=== PATIENT | female | born 1985 | race Hispanic/Latino ===

== ENCOUNTER 2022-08-29 12:56 | Emergency (ER) | payer SELFPAY ==
[2022-08-29] VITALS (14 sets, daily range): BP systolic 121–131; BP diastolic 78–79; PULSE 68–85; RESP 13–28; TEMP 36.4; O2SAT 98–100
--- NOTE | ~2022-08-29 | US_ITS ---
EXAMINATION: US pelvic complete w TV DATE: 08/29/2022 14:33 INDICATION: Vaginal bleeding and TECHNIQUE: Multiple transabdominal and endovaginal sonographic images of the pelvis were obtained. COMPARISON: None. FINDINGS: The uterus measures eight point 4 x 4 by 4.3 cm. The endometrial complex measures 17 mm. Th e right ovary measures 1.6 x 1.9 x 1.2 cm. The left ovary measures 1.2 x 1.9 x 1.4 cm. There is danuta l vascular flow in the ovaries. There is no free fluid in the pelvis. IMPRESSION: 1. of unknown location. Although no intrauterine gestational sac is seen, this may be due t o early gestation. If the patient is clinically stable, recommend followup with serial beta-hCG and u ltrasound. Reviewed, dictated and finalized at location F. IMPRESSION: 1. of unknown location. Although no intrauterine gestational sac is s een, this may be due to early gestation. If the patient is clinically stable, r ecommend followup with serial beta-hCG and ultrasound.
--- NOTE | 2022-08-29 13:42 | PC.NURSE ---
Attempted IV placement x3 and blood draw at this time, unsuccessful other than lav tube sent to lab at this time. unsuccessful attempt at lab draw by tech at this time.
[2022-08-29 13:47] LABS: Basophils Percent Auto 0.6 % (0.2-1.2); Eosinophils Absolute Auto 0.2 K/mm3 (0-0.3); Eosinophils Percent Auto 2.3 % (0-4.4); Hematocrit 40.9 % (37.0-47.0); Hemoglobin 13.1 g/dL (12.0-15.0); Immature Platelet Fraction Pct 4.3 % (0.9-11.2); Lymphocytes Absolute Auto 1.55 K/mm3 (0.9-3.2); Lymphocytes Percent Auto 23.9 % (18.3-44.2); Mean Corpuscular Volume 93.8 fl (80-100); Mean Platelet Volume 10.8 fl (7.4-10.4); Monocytes Absolute Auto 0.5 K/mm3 (0.1-0.6); Monocytes Percent Auto 7.9 % (2.6-8.5); Neutrophils Absolute Auto 4.2 K/mm3 (1.3-6.7); Neutrophils Percent Auto 65.3 % (45.5-73.1); Platelet Count Result 309 k/mm3 (150-375); Red Blood Count 4.36 M/mm3 (4.2-5.4); Red Cell Distribution Width 13.6 % (11.5-14.5); White Blood Count 6.5 K/mm3 (4.5-10.0)
[2022-08-29 15:50] LABS: Beta HCG Quantitative 141.42 mIU/ML
--- NOTE | 2022-08-29 16:19 | PC.NURSE ---
This nurse provider hand singer at this time with Dr. Trevor MD.
--- NOTE | 2022-08-29 16:25 | ED.GENADULT ---
HPI - General Adult General Chief complaint: Vaginal Bleeding Stated complaint: vaginal bleeding; Time Seen by Provider: 08/29/22 13:08 Source: RN notes reviewed History of Present Illness HPI narrative: Patient presents emergency department from home for vaginal bleeding. Patient states that she has been having vaginal bleeding that began last night states that has been dark red in nature and has been spotting but became heavier this morning. Patient states she is with last menstrual cycle July 18. States she is followed by an [facility] not at this facility. The patient is . Denies have any abdominal pain. She denies any fevers or chills or any other symptoms states he has had no evaluation for this and has not had an ultrasound Related Data Allergies Allergy/AdvReac Type Severity Reaction Status Date / Time No Known Allergies Allergy Verified 08/29/22 12:58 Review of Systems Review of Systems: Gen.: Denies fevers or chills ENT: Denies congestion Respiratory: Denies shortness of breath or cough CV: Denies chest pain or palpitations GI: Denies abdominal pain nausea, emesis or diarrhea see HPI Musculoskeletal: Denies back pain or muscle pain Neuro: Denies numbness, tingling, weakness or focal weakness Skin: Denies rash Except as documented, all other systems reviewed and negative [facility] Past Medical History Medical History (Updated 08/29/22 @ 16:30 by Jose Murray DO) Patient denies significant medical history Social History Social History (Updated 08/29/22 @ 16:27 by Jose Murray DO) Smoking status: Never smoker Exam Narrative: APPEARANCE: No acute distress, nontoxic, resting in bed EYES: EOMI HEENT: Normocephalic, atraumatic, OMM RESPIRATORY: No respiratory distress Clear to auscultation bilaterally with no rhonchi wheezing or rales. CARDIOVASCULAR: Regular rate and rhythm without murmurs rubs or gallops. ABDOMINAL: Soft, nontender, nondistended, no rebound or guarding : Normal external exam, small amount of dark red blood with clots in vaginal canal cervix is closed MUSCULOSKELETAl: Moves all extremities. No clubbing, cyanosis or edema. NEURO: Awake and alert. Following commands, speech normal, no focal deficits SKIN:: Warm, dry. No rashes lesions or abrasions PSYCHIATRIC: Normal affect/mood, Course Course Emergency Course: Stratus was used throughout stay as well as daughter for translation Discussed with patient results of workup and diagnosis. Discussed need for follow-up with primary care, proper use of medication, and reasons to return to the emergency department. Patient understands and agrees to current treatment plan Vital Signs Vital signs: Vital Signs Temperature 97.5 F L 08/29/22 13:02 Pulse Rate 84 08/29/22 13:02 Respiratory Rate 18 08/29/22 13:02 Blood Pressure 131/79 08/29/22 13:02 Pulse Oximetry 99 08/29/22 13:02 Oxygen Delivery Room Air 08/29/22 13:02 Temperature 97.5 F L 08/29/22 13:02 Pulse Rate 84 08/29/22 13:02 Respiratory Rate 18 08/29/22 13:02 Blood Pressure 131/79 08/29/22 13:02 Pulse Oximetry 99 08/29/22 13:02 Oxygen Delivery Room Air 08/29/22 13:02 Medical Decision Making Vital Signs Vital Signs: Vital Signs Temperature 97.5 F L 08/29/22 13:02 Pulse Rate 84 08/29/22 13:02 Respiratory Rate 18 08/29/22 13:02 Blood Pressure 131/79 08/29/22 13:02 Pulse Oximetry 99 08/29/22 13:02 Oxygen Delivery Room Air 08/29/22 13:02 Temperature 97.5 F L 08/29/22 13:02 Pulse Rate 84 08/29/22 13:02 Respiratory Rate 18 08/29/22 13:02 Blood Pressure 131/79 08/29/22 13:02 Pulse Oximetry 99 08/29/22 13:02 Oxygen Delivery Room Air 08/29/22 13:02 Lab Data 08/29/22 13:33 Labs: Lab Results 08/29/22 08/29/22 08/29/22 Range/Units 13:33 15:12 15:12 WBC 6.5 (4.5-10.0) K/mm3 RBC 4.36 (4.2-5.4) M/mm3 Hgb 13.1 (12.0-15
== END 2022-08-29 16:46 | disposition home or self-care (01) ==
PROVIDERS: Emergency Provider Emergency Medicine
DX: O20.0 Threatened abortion (principal); Z3A.00 Weeks of gestation of pregnancy not specified
CPT/HCPCS: 36415; 76830; 76856; 84702; 85025; 85055; 85461; 86850; 86900; 86901; 99284

== ENCOUNTER 2023-03-25 08:12 | Emergency (ER) | payer MEDICAID, SELFPAY ==
[2023-03-25 08:43] VITALS: BP 121/73; PULSE 87; RESP 18; TEMP 36.6; O2SAT 98
[2023-03-25 09:32] LABS: Influenza A QL RT-PCR Negative (Negative); Influenza B QL RT-PCR Negative (Negative); RSV RNA, RT-PCR Negative (Negative); SARS-CoV-2 RNA PCR Negative (Negative)
--- NOTE | 2023-03-25 10:14 | ED.URI ---
HPI - URI/Sore Throat General Chief Complaint: Upper Respiratory Infection Stated Complaint: has cold, has cough Time Seen by Provider: 03/25/23 08:42 History of Present Illness HPI Narrative: Patient presenting with URI symptoms for the last 3 days, she is 5 months , has no abdominal pain or vaginal bleeding, but does have all over body aches. Has already been seen by her doctor and started on multiple medications including migraine medications, Flonase, antibiotics. Related Data Allergies Allergy/AdvReac Type Severity Reaction Status Date / Time No Known Allergies Allergy Verified 08/29/22 12:58 Review of Systems Review of Systems: CONST: No fever. HEENT: Congestion, sore throat C/V: No chest pain RESP: cough GI: Nausea without abdominal pain : No dysuria or vaginal bleeding. M/S: Body aches SKIN: No rash. NEURO: [No focal numbness or weakness] PSYCH: [No depression] [facility] Past Medical History Medical History (Updated 03/25/23 @ 09:40 by Elizabet James MD) Patient denies significant medical history Social History Social History (Updated 08/29/22 @ 16:27 by Jose Murray DO) Smoking status: Never smoker Exam Narrative: EXAMINATION OF ORGAN SYSTEMS/BODY AREAS: Constitutional: Vital signs per nursing GENERAL:[No acute distress, non-toxic appearing.] HEAD: Normal with no signs of head trauma. EYES: EOMI, conjunctiva normal ENT: Congestion, airway intact LUNGS: Nonlabored breathing. Clear to auscultation bilaterally HEART: [Regular rate and rhythm] ABD: [Soft], [nontender to palpation], gravid EXT: Normal range of motion SKIN: [No rashes or lesions.] NEURO: [Alert and oriented x 3. No gross focal sensory or strength deficits.] PSYCH: Normal affect Course Vital Signs Vital signs: Vital Signs Temperature 98 F 03/25/23 08:43 Pulse Rate 87 03/25/23 08:43 Respiratory Rate 18 03/25/23 08:43 Blood Pressure 121/73 03/25/23 08:43 Pulse Oximetry 98 03/25/23 08:43 Oxygen Delivery Room Air 03/25/23 08:43 Temperature 98 F 03/25/23 08:43 Pulse Rate 87 03/25/23 08:43 Respiratory Rate 18 03/25/23 08:43 Blood Pressure 121/73 10/25/23 08:43 Pulse Oximetry 98 03/25/23 08:43 Oxygen Delivery Room Air 03/25/23 08:43 MDM - URI/Sore Throat MDM Narrative Medical decision making narrative: ED COURSE AND MEDICAL DECISION MAKING: This 37F year old patient presents with symptoms most suggestive of viral upper respiratory tract infection. Lungs are clear bilaterally without any respiratory distress or accessory muscle use. Respiratory swab is negative here. She is already on multiple medications from her PCP and I do not have anything further to offer, she also already has nausea medications. I have discussed findings with her and she is discharged home in stable condition with expectant management. Return precautions were provided and I have asked her to f/u with her PCP/OBGYN in 1-2 days. Pt and daughter agreeable to this and she is well appearing at time of discharge. Lab Data Labs: Lab Results 03/25/23 Range/Units 08:47 Influenza A (RT-PCR) Negative (Negative) Influenza B (RT-PCR) Negative (Negative) RSV (RT-PCR) Negative (Negative) SARS-CoV-2 RNA (RT-PCR) Negative (Negative) Discharge Plan Discharge Clinical Impression: Upper respiratory infection Patient Disposition: Home, Self-Care Condition: Stable Instructions: Antibiotic Form, Viral Syndrome (ED), Cold Symptoms (ED) Additional Instructions: Please follow up with your doctor in 2 days; come back if you can't breathe or keep anything down or if you feel worse. Patient Language: Uruguayan Follow-up/Referrals: PHYSICIAN NOT ON STAFF,NONSTAFF [Primary Care Provider] -
== END 2023-03-25 10:15 | disposition home or self-care (01) ==
PROVIDERS: Emergency Provider Emergency Medicine
DX: O99.512 Diseases of the respiratory system complicating pregnancy, second trimester (principal); J06.9 Acute upper respiratory infection, unspecified; Z20.822 Contact with and (suspected) exposure to COVID-19; Z3A.00 Weeks of gestation of pregnancy not specified
CPT/HCPCS: 87637; 99283

== ENCOUNTER 2023-06-10 12:32 | Outpatient (CLI) | payer OTHER, SELFPAY ==
--- NOTE | 2023-06-12 16:24 | WPDHOLTEREM ---
Holter/Event Monitor Holter/Event Monitor Date of procedure: 06/10/23 Holter/Event Procedure: 48 Hr Holter Monitor Indications: Palpitations Conclusion: 1. 48 hour holter monitor on 06/10/23. 2. Underlying rhythm is sinus rhythm. HR range 65-138 bpm; average HR 85 bpm. 3. There are 5 premature supraventricular complexes. No supraventricular tachycardia. 4. There are 21 premature ventricular complexes and 3 ventricular bigeminy. No ventricular tachycardia. 5. No sinoatrial or atrioventricular blocks. No significant pauses greater than 2 seconds. 6. Patient reports 1 episode of symptom of faster heart rate which demonstrate sinus rhythm at 85 bpm with a premature ventricular complex.
== END 2023-06-10 12:33 | disposition home or self-care (01) ==
LOC: ANHCARD 12:33
PROVIDERS: Visit Provider Obstetrics & Gynecology
DX: R00.2 Palpitations (principal)
CPT/HCPCS: 93225; 93226

== ENCOUNTER 2023-07-25 08:09 | Inpatient (IN) | payer OTHER, SELFPAY ==
[2023-07-25] VITALS (47 sets, daily range): BP systolic 73–138; BP diastolic 18–119; PULSE 73–140; RESP 16–18; TEMP 36.5–37.2; O2SAT 98; BMI 39.4
[2023-07-25 08:41] LABS: Basophils Percent Auto 0.4 % (0.2-1.2); Eosinophils Absolute Auto 0.1 K/mm3 (0-0.3); Eosinophils Percent Auto 0.8 % (0-4.4); Hematocrit 38.5 % (37.0-47.0); Hemoglobin 12.2 g/dL (12.0-15.0); Immature Granulocyte Absolute 0.03 K/mm3 (0.00-0.031); Immature Granulocyte Percent A 0.4 % (0-0.5); Lymphocytes Absolute Auto 1.33 K/mm3 (0.9-3.2); Lymphocytes Percent Auto 16.8 % (18.3-44.2); Mean Corpuscular HGB Conc 31.7 g/dl (32-36); Mean Corpuscular Hemoglobin 27.7 pg (26-34); Mean Corpuscular Volume 87.5 fl (80-100); Mean Platelet Volume 10.9 fl (7.4-10.4); Monocytes Absolute Auto 0.6 K/mm3 (0.1-0.6); Monocytes Percent Auto 7.5 % (2.6-8.5); Neutrophils Absolute Auto 5.9 K/mm3 (1.3-6.7); Neutrophils Percent Auto 74.1 % (45.5-73.1); Platelet Count Result 290 k/mm3 (150-375); Red Cell Distribution Width 14.9 % (11.5-14.5); White Blood Count 7.9 K/mm3 (4.5-10.0)
[2023-07-25] MEDS: LACTATED RINGERS 1,000 ML 125 ML IV CONT (08:43)
[2023-07-25] MEDS: AMPICILLIN 2 GM/NS 100 ML 2 GM/100 ML BAG IVPB (08:45)
[2023-07-25 08:58] LABS: Glucose Point of Care 91 mg/dl (65-105)
[2023-07-25] MEDS: fentaNYL CITRATE INJ (*CRX) 100 MCG/2 ML VIAL 50 MCG IV PUSH (09:01)
--- NOTE | 2023-07-25 09:48 | LDADM ---
This patient, Carlita Wesley, was admitted to Labor/Delivery/Recovery 106 on 07/25/23 at 08:10. Plans for labor, pain management and were discussed with patient. Patient/family oriented to hospital policies and general routines including ID bracelet, bed and alarms, visiting hours, pain management, procedures, bathroom and other care routines, personal items, smoking policy, room service/diet and guest tray routines, security routines, and visiting hours. Patient/Family are encouraged to report perceived risks to care and to ask questions if they do not understand what they are told or what they should do. See OBIX for further documentation.
[2023-07-25] MEDS: AMPICILLIN 1 GM/NS 50 ML 1 GM/50 ML BAG IVPB (12:16)
[2023-07-25] MEDS: OXYTOCIN 30 UNITS/NS 500 ML 30 UNITS/500 ML BAG IV CONT (13:06)
--- NOTE | 2023-07-25 13:40 | PM.IMHP ---
H&P: HPI History of Present Illness Date/Time: 07/25/23 13:40 Chief Complaint: contractions Narrative: Patient is a 38 year old who presented for ROR; exam was negative for rupture however she was 6cm and admitted for labor. Her has been complicated by GDMA1 (well controlled with diet), AMA, and GBS positive. She denies VB or decreased movement. Review of Systems Review of Systems: All systems reviewed & are unremarkable except as noted in HPI and below PMFSH Past Medical History Medical History Patient denies significant medical history Social History Social History Smoking status: Never smoker Substance use: never Do You Feel Safe in your Home?: Yes Lack of Transportation: No Lack of Food: Never True Current Housing: I Have Housing Concerned About Future Housing: No Difficulty Paying Gas/Electric Bills: YES Difficulty Paying for Meds: No Currently Unemployed: No Education: High School Diploma/GED Difficulty w/ Childcare or Family Care: No Spiritual care concerns: No Meds Home Medications and Allergies Home Medications Medication Instructions Recorded Confirmed Type fluconazole 150 mg tablet 150 mg PO DAILY 07/25/23 07/25/23 History [id number] 1 mg 1 tablet PO DAILY 07/25/23 07/25/23 History tablet Allergies Allergy/AdvReac Type Severity Reaction Status Date / Time No Known Allergies Allergy Verified 07/25/23 08:48 Vital Signs Vital Signs - 24 hr 07/25/23 06:23 07/25/23 09:04 07/25/23 09:10 Temperature Pulse Rate 75 73 83 Blood Pressure 110/69 121/72 115/72 Oxygen Delivery 07/25/23 09:31 07/25/23 09:46 07/25/23 10:01 Temperature Pulse Rate 85 79 83 Blood Pressure 111/59 L 116/71 112/69 Oxygen Delivery 07/25/23 10:16 07/25/23 10:31 07/25/23 10:41 Temperature Pulse Rate 89 87 88 Blood Pressure 113/72 119/77 106/18 L Oxygen Delivery 07/25/23 10:42 07/25/23 09:00 07/25/23 10:23 Temperature 98 F 97.7 F Pulse Rate 88 Blood Pressure 112/65 Oxygen Delivery 07/25/23 11:01 07/25/23 11:31 07/25/23 12:01 Temperature Pulse Rate 84 92 91 Blood Pressure 113/69 118/78 117/72 Oxygen Delivery 07/25/23 12:31 07/25/23 13:01 07/25/23 13:31 Temperature Pulse Rate 80 85 140 H Blood Pressure 120/75 112/74 80/46 L Oxygen Delivery 07/25/23 13:32 07/25/23 13:36 07/25/23 10:19 Temperature Pulse Rate 93 94 Blood Pressure 95/69 L 113/54 L Oxygen Delivery Room Air Exam Const: General: comfortable and no acute distress HENMT: Mouth: Yes moist mucous membranes Eyes: General: appearance normal, both eyes and all related structures Resp: Effort & Inspection: normal respiratory effort Cardio: Rate: regular rate Skin: General skin exam: normal color Extrem: General: normal to inspection Psych: Mental Status: mental status grossly normal H&P: Results Labs Labs: Short CBC 07/25/23 Range/Units 08:33 WBC 7.9 (4.5-10.0) K/mm3 Hgb 12.2 (12.0-15.0) g/dL Hct 38.5 (37.0-47.0) % Plt Count 290 (150-375) k/mm3 Assessment and Plan Assessment and plan (1) Normal labor: Code(s): O80 - Encounter for full-term uncomplicated delivery; Z37.9 - Outcome of delivery, unspecified Status: Acute Plan Expectant management; plan for AROM after PCN for GBS ppx. Pitocin per protocol prn.
--- NOTE | 2023-07-25 13:48 | P.PCNOB_ITS ---
OB - Vaginal Delivery Note Procedure Delivery date: 07/25/23 Events: Gestational Diabetes, Positive Group B Strep (GBS) and Other (AMA) Delivery augmentation: Rupture of Membranes and Pitocin Delivery monitor: External FHT and External Uterine Route of delivery: Episiotomy description: None Laceration Description: Perineal - 1st Degree (hemostatic) Specimen: Yes Quantitative Blood Loss (ml): 50 Anesthesia type: None Disposition: Floor Complications: No immediate complications Narrative: Patient progressed to complete dilation and at the appropriate time began pushing. The baby's head delivered without issue; nuchal cord was present x1 and delivered through. The rest of the infant delivered without issue. The umbilical cord was clamped and cut after 60 seconds of delayed cord clamping. Mother and infant are stable at this time. [place] Baby Date of : 07/25/23 Time of : 13:38 Weeks of gestation at delivery: 38 Infant gender: Male presentation: vertex position: Left Occiput Anterior Placenta delivery description: Spontaneous Cord Vessel Description: 3 Vessels
[2023-07-25] MEDS: OXYTOCIN 30 UNITS/NS 500 ML 30 UNITS/500 ML BAG 125 UNITS IV CONT (14:05)
[2023-07-25] MEDS: BENZOCAINE 20% AER SPR (*SP) 56 GM CAN 1 SPRAY TOPICAL (15:39)
[2023-07-25] MEDS: WITCH HAZEL 40 PADS 1 PAD TOPICAL (15:39)
--- NOTE | 2023-07-25 16:19 | OBPPTRN ---
Patient transferred to post room #279 via wheelchair. Support person present. Oriented to unit, room, information board, rooming in, admission packet and security measures. Patient verbalizes understanding.
[2023-07-25] MEDS: ACETAMINOPHEN 325 MG TABLET 650 MG PO (19:24)
[2023-07-25] MEDS: IBUPROFEN 600 MG TABLET PO (19:25)
[2023-07-26] MEDS: ACETAMINOPHEN 325 MG TABLET 650 MG PO (01:32)
[2023-07-26] MEDS: IBUPROFEN 600 MG TABLET PO ×2 (01:32→08:51)
[2023-07-26 04:00] VITALS: BP 114/72; PULSE 70; RESP 18; TEMP 36.7; O2SAT 100
[2023-07-26 05:12] LABS: Hematocrit 34.5 % (37.0-47.0); Hemoglobin 10.8 g/dL (12.0-15.0)
[2023-07-26 07:15] VITALS: BP 108/65; PULSE 71; RESP 16; TEMP 36.4; O2SAT 100
[2023-07-26 08:25] VITALS: BP 102/70; PULSE 72; RESP 16; TEMP 36.4; O2SAT 99
--- NOTE | 2023-07-26 08:32 | P.PNOB_ITS ---
OB - PN: Subj Subjective Date/time seen: 07/26/23 08:32 Interval history: PPD#1 Doing well, pain well controlled Bleeding minimal Tolerating general diet Voiding without issue Working on , baby having some latch issues OB - PN: Obj Data Labs 07/26/23 04:35 Labs: Laboratory Results - last 24 hr 07/25/23 07/25/23 07/25/23 08:33 08:45 09:19 WBC 7.9 RBC 4.40 Hgb 12.2 Hct 38.5 MCV 87.5 MCH 27.7 MCHC 31.7 L RDW 14.9 H Plt Count 290 MPV 10.9 H Immature Gran % (Auto) 0.4 Neut % (Auto) 74.1 H Lymph % (Auto) 16.8 L [place] % (Auto) 7.5 Eos % (Auto) 0.8 Baso % (Auto) 0.4 Lymph # (Auto) 1.33 [place] # (Auto) 0.6 Eos # (Auto) 0.1 Baso # (Auto) 0.0 Abs Immat Gran (auto) 0.03 Absolute Neuts (auto) 5.9 Absolute Nucleated RBC 0.0 Nucleated RBC % 0.0 POC Capillary Glucose 91 Blood Type O Positive Antibody Screen Negative 07/26/23 04:35 WBC RBC Hgb 10.8 L Hct 34.5 L MCV MCH MCHC RDW Plt Count MPV Immature Gran % (Auto) Neut % (Auto) Lymph % (Auto) [place] % (Auto) Eos % (Auto) Baso % (Auto) Lymph # (Auto) [place] # (Auto) Eos # (Auto) Baso # (Auto) Abs Immat Gran (auto) Absolute Neuts (auto) Absolute Nucleated RBC Nucleated RBC % POC Capillary Glucose Blood Type Antibody Screen OB - PN A/P Plan day: 1 Plan: routine care and discharge home Comments: - discussed in office assistance if needed after the patient is discharged; can call the office to schedule Time Spent With Patient Time: Total time spent is greater than 50% in coordination of care (as documented) at patient's floor/unit and/or counseling patient: Review of Systems Review of Systems: All systems reviewed & are unremarkable except as noted in HPI and below Exam Const: General: comfortable and no acute distress HENMT: Mouth: Yes moist mucous membranes Eyes: General: appearance normal, both eyes and all related structures Resp: Effort & Inspection: normal respiratory effort Cardio: Rate: regular rate Skin: General skin exam: normal color Extrem: General: normal to inspection Psych: Mental Status: mental status grossly normal
--- NOTE | 2023-07-26 08:35 | PM.OBDSVD ---
DS: Admitting Diagnosis Discharge Date 07/26/23 Admitting Diagnosis labor DS: Discharge Diagnosis Discharge Diagnosis (1) (spontaneous vaginal delivery): Code(s): O80 - Encounter for full-term uncomplicated delivery Status: Acute OB - DS: Summary OB Procedures : None OB Procedures Intrapartum: Spontaneous Vag Delivery OB Procedures: : None Peripartum Data Laceration Description: Perineal - 1st Degree (hemostatic) Episiotomy description: None Time Spent with Patient Time attestation: Total time spent providing and/or coordinating discharge services: Exam Const: General: comfortable and no acute distress HENMT: Mouth: Yes moist mucous membranes Eyes: General: appearance normal, both eyes and all related structures Resp: Effort & Inspection: normal respiratory effort Cardio: Rate: regular rate Skin: General skin exam: normal color Extrem: General: normal to inspection Psych: Mental Status: mental status grossly normal DS: Data Data Completed and Pending Labs on day of discharge: Labs from last 24 hours 07/26/23 07/25/23 07/25/23 04:35 09:19 08:45 WBC RBC Hgb 10.8 L Hct 34.5 L MCV MCH MCHC RDW Plt Count MPV Immature Gran % (Auto) Neut % (Auto) Lymph % (Auto) [place] % (Auto) Eos % (Auto) Baso % (Auto) Lymph # (Auto) [place] # (Auto) Eos # (Auto) Baso # (Auto) Abs Immat Gran (auto) Absolute Neuts (auto) Absolute Nucleated RBC Nucleated RBC % POC Capillary Glucose 91 RPR Blood Type O Positive Antibody Screen Negative 07/25/23 08:33 WBC 7.9 RBC 4.40 Hgb 12.2 Hct 38.5 MCV 87.5 MCH 27.7 MCHC 31.7 L RDW 14.9 H Plt Count 290 MPV 10.9 H Immature Gran % (Auto) 0.4 Neut % (Auto) 74.1 H Lymph % (Auto) 16.8 L [place] % (Auto) 7.5 Eos % (Auto) 0.8 Baso % (Auto) 0.4 Lymph # (Auto) 1.33 [place] # (Auto) 0.6 Eos # (Auto) 0.1 Baso # (Auto) 0.0 Abs Immat Gran (auto) 0.03 Absolute Neuts (auto) 5.9 Absolute Nucleated RBC 0.0 Nucleated RBC % 0.0 POC Capillary Glucose RPR Pending Blood Type Antibody Screen Discharge Plan Discharge Attending physician on discharge: Cody Prajapati Discharging Clinician: Cody Prajapati Patient Disposition: Home, Self-Care Activity: may shower and pelvic rest Diet: as tolerated Patient Instructions: Antibiotic Form Stand Alone Forms: General Discharge Information Follow-up/Referrals: Kiersten Ohara MD [Physician] - 5 Weeks Discharge Medications: New docusate sodium 100 mg Capsule 100 mg PO BID PRN (Reason: Constipation) Qty: 60 0RF ibuprofen 600 mg Tablet 600 mg PO Q6H PRN (Reason: Cramping) Qty: 30 0RF Continued 1 mg Tablet 1 tablet PO DAILY Discontinued fluconazole 150 mg tablet 150 mg PO DAILY Date of admission: 07/25/23 08:10 Primary Care Provider: PHYSICIAN NOT ON STAFF,NONSTAFF Admitting Provider: Kiersten Ohara Attending physician on admission: Kiersten Ohara Condition: Stable
[2023-07-26] MEDS: MULTIVIT/MIN/PREN/FOL AC/IRON TABLET 1 TAB PO (08:51)
[2023-07-26] MEDS: DOCUSATE SODIUM 100 MG CAPSULE PO (08:51)
[2023-07-26 19:04] VITALS: BP 108/63; PULSE 74; RESP 18; TEMP 36.1; O2SAT 100
[2023-07-27] MEDS: ACETAMINOPHEN 325 MG TABLET 650 MG PO (05:06)
[2023-07-27] MEDS: IBUPROFEN 600 MG TABLET PO (05:07)
[2023-07-27 08:05] VITALS: BP 112/73; PULSE 66; RESP 16; TEMP 36.9; O2SAT 100
--- NOTE | 2023-07-27 09:09 | PM.OBPNVD ---
OB - PN: Subj Subjective Date/time seen: 07/27/23 09:09 Interval history: PPD#2 Doing well, pain well controlled Bleeding minimal Tolerating general diet Voiding without issue Had to stay due to GBS positive status, peds wanted to watch baby; ready for discharge home today OB - PN: Obj Data Labs 07/26/23 04:35 OB - PN A/P Plan day: 2 Plan: routine care and discharge home Time Spent With Patient Time: Total time spent is greater than 50% in coordination of care (as documented) at patient's floor/unit and/or counseling patient: Review of Systems Review of Systems: All systems reviewed & are unremarkable except as noted in HPI and below Exam Const: General: comfortable and no acute distress HENMT: Mouth: Yes moist mucous membranes Eyes: General: appearance normal, both eyes and all related structures Resp: Effort & Inspection: normal respiratory effort Cardio: Rate: regular rate Skin: General skin exam: normal color Extrem: General: normal to inspection Psych: Mental Status: mental status grossly normal
[2023-07-27] MEDS: MULTIVIT/MIN/PREN/FOL AC/IRON TABLET 1 TAB PO (09:48)
[2023-07-27] MEDS: DOCUSATE SODIUM 100 MG CAPSULE PO (09:48)
[2023-07-27] MEDS: TETANUS,DIPHTHERIA,AC PERTUSSIS ADULT (0.5 ML) BOOSTRIX IM (09:52)
[2023-07-27 15:32] LABS: Rapid Plasma Reagin Non-Reactive (NonReactive)
--- NOTE | 2023-07-27 20:10 | PC.NURSE ---
1100 Patient viewed the discharge video Mother & Baby Care, The First Two Weeks . Patient was given the opportunity and encouraged to ask questions. Patient verbalized understanding of information shared and has been given the mother/baby guide for home reference. Viewed the [place] version.
--- NOTE | 2023-07-27 20:12 | PC.NURSE ---
0945 Used daughter to translate what was not understood by the pt. For AM assessments, giving Vaccines and meds and for some of the D/C teaching. She V/U'd.
[2023-07-28 10:15] VITALS: BP 100/76; PULSE 71; RESP 18; TEMP 37.1; O2SAT 100
== END 2023-07-27 14:07 | disposition home or self-care (01) | DRG 560 ==
LOC: ANHLDR 08:16 → ANHOB2 16:37
PROVIDERS: Obstetrics & Gynecology; Admitting Provider Obstetrics & Gynecology; Visit Provider Obstetrics & Gynecology
DX: O24.420 Gestational diabetes mellitus in childbirth, diet controlled (principal); O99.824 Streptococcus B carrier state complicating childbirth; O70.0 First degree perineal laceration during delivery; O69.81X0 Labor and delivery complicated by cord around neck, without compression, not applicable or unspecified; Z3A.38 38 weeks gestation of pregnancy; Z37.0 Single live birth; Z23 Encounter for immunization
CPT/HCPCS: 36415; 82948; 84112; 85014; 85018; 85025; 86592; 86850; 86900; 86901; 90471; 90686; 90715; A9270; G0008; J0290; J2590; J3010; J7120